=== PATIENT | male | born 1975 | race Caucasian/White ===

== ENCOUNTER 2021-04-03 09:02 | Emergency (ER) | payer OTHER ==
[2021-04-03] MEDS ORDERED: NORCO 5-325 TA1 EACH PO ×2 (10:47→10:48)
[2021-04-03] MEDS ORDERED: NAPROXEN500 MG PO ×2 (10:47→10:48)
== END 2021-04-03 11:20 | disposition home or self-care (01) ==
LOC: FER 09:02
DX: S63.501A Unspecified sprain of right wrist, initial encounter (principal); W19.XXXA Unspecified fall, initial encounter; Y92.219 Unspecified school as the place of occurrence of the external cause
CPT/HCPCS: 73100